=== PATIENT | male | born 1985 | race Two or more races ===

== ENCOUNTER 2017-10-24 15:47 | Emergency (ER) | payer SELFPAY ==
[~2017-10-24] VITALS: Ht 170.2 cm; Wt 68.0 kg
[2017-10-24] MEDS ORDERED: NKM (16:03)
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
[2017-10-24] MEDS ORDERED: TYLENOL EXTRA500 MG ORAL (17:46)
[2017-10-24 17:50] VITALS: BP 121/85
== END 2017-10-24 17:50 | disposition home or self-care (01) ==
LOC: EMR 16:30
DX: T76.21XA Adult sexual abuse, suspected, initial encounter (principal); K62.89 Other specified diseases of anus and rectum; X58.XXXA Exposure to other specified factors, initial encounter; Y92.009 Unspecified place in unspecified non-institutional (private) residence as the place of occurrence of the external cause
CPT/HCPCS: 99283